=== PATIENT | female | born 1940 | race Caucasian/White ===

== ENCOUNTER → 2017-01-11 10:06 | Outpatient (CLI) | payer MEDICARE, BC ==
[2013-03-28 10:30] VITALS: BMI 33.4
== END | disposition home or self-care (01) ==
LOC: D.CT 10:06
DX: R10.9 Unspecified abdominal pain (principal)

== ENCOUNTER → 2017-02-23 16:40 | Outpatient (CLI) | payer MEDICARE, BC ==
[2013-03-28 10:30] VITALS: BMI 33.4
== END | disposition home or self-care (01) ==
LOC: D.MAMMO 14:15
DX: Z12.31 Encounter for screening mammogram for malignant neoplasm of breast (principal)

== ENCOUNTER 2017-11-24 20:15 | Inpatient (IN) | payer MEDICARE, BC ==
[~2017-11-24] VITALS: Ht 172.7 cm; Wt 89.2 kg
[2017-11-24 19:00] VITALS: BP 138/53
[2017-11-24 20:56] LABS: BASOPHILS 0.3 % (0-2); EOSINOPHILS 2.2 % (0-7); HEMATOCRIT 40.3 % (36.0-48.0); HEMOGLOBIN 13.2 g/dL (12-16); IMMATURE GRANULOCYTES 0.3 % (0-5); LYMPHOCYTES 7.6 % (15-50); MCH 29.1 pg (26.0-34.0); MCHC 32.8 g/dL (31.0-37.0); MEAN PLATELET VOLUME 9.9 fL (7.4-10.4); MONOCYTES 10.1 % (2-11); NEUTROPHILS 79.5 % (40-80); PLATELET COUNT 177 10x3/uL (130-400); RBC 4.53 10x6/uL (4.00-5.40); RDW 12.9 % (11.5-14.5); WBC 7.3 10x3/uL (4.8-10.8)
[2017-11-24 21:06] LABS: ALBUMIN 3.8 g/dL (3.4-5.0); ANION GAP 12.4 mmol/L (8-16); BILIRUBIN - TOTAL 0.61 mg/dL (0.2-1.3); CALCIUM 9.2 mg/dL (8.5-10.1); CARBON DIOXIDE 27.5 mmol/L (21.0-32.0); CREATININE - SERUM 1.3 mg/dL (0.6-1.3); POTASSIUM - SERUM 3.9 mmol/L (3.5-5.1); PROTEIN - SERUM 7.8 g/dL (6.4-8.2)
[2017-11-24 21:34] LABS: INR 2.72 (0.85-1.17); PROTIME 28.1 SECONDS (11.6-15.0)
[2017-11-24 21:45] LABS: APPEARANCE HAZY (CLEAR); BILIRUBIN NEGATIVE (NEGATIVE); COLOR YELLOW (YELLOW); GLUCOSE NEGATIVE (NEGATIVE); KETONE NEGATIVE (NEGATIVE); NITRITE NEGATIVE (NEGATIVE); PROTEIN 1+ mg/dL (NEGATIVE); UROBILINOGEN NORMAL (NORMAL)
[2017-11-24 21:47] LABS: WHITE CELLS - URINE >50 /hpf (0-5)
[2017-11-24 21:48] LABS: BACTERIA MANY /hpf (NONE SEEN); EPITHELIAL CELLS 0-5 /hpf (0-5)
[2017-11-24] MEDS ORDERED: COUMADIN2 MG PO (23:41)
[2017-11-24] MEDS ORDERED: PROTONIX40 MG PO (23:46)
[2017-11-24] MEDS ORDERED: CELEXA20 MG PO (23:46)
[2017-11-24] MEDS ORDERED: NORVASC5 MG PO (23:46)
[2017-11-24] MEDS ORDERED: METOPROLOL TAR100 M1 PO (23:47)
[2017-11-24] MEDS ORDERED: GEMFIBROZIL600 MG PO (23:47)
[2017-11-24] MEDS ORDERED: ELAVIL25 MG PO (23:54)
[2017-11-24 23:55] VITALS: BMI 30.1
[2017-11-25 03:34] VITALS: BP 134/55
[2017-11-25 08:32] VITALS: BP 167/51
[2017-11-25 11:23] VITALS: Ht 172.7 cm; Wt 89.2 kg
[2017-11-25 11:24] VITALS: BP 124/49
[2017-11-25 15:46] VITALS: BP 152/54
[2017-11-25 19:42] LABS: CKMB 0.6 U/L (0.0-3.6); CREATINE KINASE 52 UL (21-215); TROPONIN-I 0.021 ng/mL (0.000-0.060)
[2017-11-25 20:00] VITALS: BP 169/56
[2017-11-26] VITALS: BP 157/61
[2017-11-26 04:00] VITALS: BP 180/57
[2017-11-26 04:48] LABS: BASOPHILS 0 % (0-2); EOSINOPHILS 0 % (0-7); HEMATOCRIT 35.6 % (36.0-48.0); HEMOGLOBIN 11.6 g/dL (12-16); IMMATURE GRANULOCYTES 0.2 % (0-5); LYMPHOCYTES 14.3 % (15-50); MCH 29.1 pg (26.0-34.0); MCHC 32.6 g/dL (31.0-37.0); MCV 89.4 fL (80.0-100.0); MEAN PLATELET VOLUME 10.6 fL (7.4-10.4); MONOCYTES 9.5 % (2-11); PLATELET COUNT 152 10x3/uL (130-400); RBC 3.98 10x6/uL (4.00-5.40); RDW 13.3 % (11.5-14.5); WBC 6.2 10x3/uL (4.8-10.8)
[2017-11-26 05:20] LABS: ANION GAP 12.3 mmol/L (8-16); CALCIUM 8.5 mg/dL (8.5-10.1); CARBON DIOXIDE 26.9 mmol/L (21.0-32.0); CREATININE - SERUM 1.2 mg/dL (0.6-1.3); POTASSIUM - SERUM 4.2 mmol/L (3.5-5.1)
[2017-11-26 07:55] VITALS: BP 182/60
[2017-11-26 16:17] VITALS: BP 163/65
[2017-11-26 19:00] VITALS: BP 140/75
[2017-11-27 04:00] VITALS: BP 139/63
[2017-11-27 04:54] LABS: BASOPHILS 0.2 % (0-2); EOSINOPHILS 0.2 % (0-7); HEMATOCRIT 38.8 % (36.0-48.0); HEMOGLOBIN 12.3 g/dL (12-16); IMMATURE GRANULOCYTES 0.2 % (0-5); LYMPHOCYTES 25.4 % (15-50); MCHC 31.7 g/dL (31.0-37.0); MEAN PLATELET VOLUME 10.4 fL (7.4-10.4); PLATELET COUNT 148 10x3/uL (130-400); RBC 4.24 10x6/uL (4.00-5.40); RDW 13.6 % (11.5-14.5); WBC 5.5 10x3/uL (4.8-10.8)
[2017-11-27 05:09] LABS: MCV 91.5 fL (80.0-100.0)
[2017-11-27 05:10] LABS: INR 1.6 (0.85-1.17); PROTIME 18.5 SECONDS (11.6-15.0)
[2017-11-27 05:15] LABS: ANION GAP 12.4 mmol/L (8-16); CALCIUM 8.1 mg/dL (8.5-10.1); CARBON DIOXIDE 26.4 mmol/L (21.0-32.0); CREATININE - SERUM 1.1 mg/dL (0.6-1.3); POTASSIUM - SERUM 3.8 mmol/L (3.5-5.1)
[2017-11-27] MEDS ORDERED: LEVAQUIN500 MG PO (06:39)
[2017-11-27] MEDS ORDERED: MUCINEX600 MG PO (06:40)
[2017-11-27] MEDS ORDERED: VENTOLIN HFA18 GM INH (06:40)
[2017-11-27] MEDS ORDERED: CEFUROXIME250 MG PO (06:44)
[2017-11-27 08:46] VITALS: BP 130/68
== END 2017-11-27 10:59 | disposition home or self-care (01) | DRG 690 ==
LOC: D.ER 20:15 → D.M2 22:50
PROVIDERS: Emergency Medicine; Family Medicine; Physician Assistant Medical
DX: N39.0 Urinary tract infection, site not specified (principal); I10 Essential (primary) hypertension; I48.91 Unspecified atrial fibrillation; Z87.891 Personal history of nicotine dependence

== ENCOUNTER → 2017-12-21 12:21 | Outpatient (CLI) | payer MEDICARE, BC ==
[2017-11-25 11:23] VITALS: BMI 30.1
[~2017-12-21 12:21] MED LIST: CEFUROXIME250 MG PO; CELEXA20 MG PO; COUMADIN2 MG PO; ELAVIL25 MG PO; GEMFIBROZIL600 MG PO; LEVAQUIN500 MG PO; METOPROLOL TAR100 M1 PO; MUCINEX600 MG PO; NORVASC5 MG PO; PROTONIX40 MG PO; VENTOLIN HFA18 GM INH
[2017-12-21 14:10] LABS: INR 2.65 (0.85-1.17); PROTIME 27.6 SECONDS (11.6-15.0)
== END | disposition home or self-care (01) ==
LOC: D.LABREF 12:21
PROVIDERS: Family Medicine
DX: I74.3 Embolism and thrombosis of arteries of the lower extremities (principal)

== ENCOUNTER → 2018-04-09 23:56 | Outpatient (CLI) | payer MEDICARE, BC ==
[2017-11-25 11:23] VITALS: BMI 30.1
== END | disposition home or self-care (01) ==
LOC: D.MAMMO 15:45
DX: Z12.31 Encounter for screening mammogram for malignant neoplasm of breast (principal)

== ENCOUNTER → 2018-05-21 20:22 | Outpatient (CLI) | payer MEDICARE, BC ==
[2017-11-25 11:23] VITALS: BMI 30.1
== END | disposition home or self-care (01) ==
LOC: D.MAMMO 11:00
DX: R92.8 Other abnormal and inconclusive findings on diagnostic imaging of breast (principal)

== ENCOUNTER → 2019-05-15 08:30 | Outpatient (CLI) | payer MEDICARE, BC ==
[2017-11-25 11:23] VITALS: BMI 30.1
== END | disposition home or self-care (01) ==
LOC: D.MAMMO 08:30
PROVIDERS: ATTEND Family Medicine
DX: Z12.31 Encounter for screening mammogram for malignant neoplasm of breast (principal)

== ENCOUNTER → 2019-10-06 10:19 | Outpatient (CLI) | payer MEDICARE, BC ==
[2017-11-25 11:23] VITALS: BMI 30.1
== END | disposition home or self-care (01) ==
LOC: D.HCCECHO 10:19 → D.HCCARDIO 11:00 → D.HCCECHO 11:00
PROVIDERS: ATTEND Internal Medicine Cardiovascular Disease
DX: I10 Essential (primary) hypertension (principal)

== ENCOUNTER → 2020-02-10 12:44 | Outpatient (CLI) | payer MEDICARE, BC ==
[2017-11-25 11:23] VITALS: BMI 30.1
== END | disposition home or self-care (01) ==
LOC: D.MRI 12:44
PROVIDERS: ATTEND Family Medicine
DX: M25.511 Pain in right shoulder (principal); M54.2 Cervicalgia

== ENCOUNTER → 2020-05-13 16:51 | Outpatient (CLI) | payer MEDICARE, BC ==
[2017-11-25 11:23] VITALS: BMI 30.1
== END ==
LOC: D.MAMMO 05-11 11:45
PROVIDERS: ATTEND Family Medicine
DX: Z13.21 Encounter for screening for nutritional disorder (principal)